=== PATIENT | female | born 1985 | race Two or more races ===

== ENCOUNTER → 2021-12-24 | Emergency (ER) | payer OTHER ==
[~2021-12-24] VITALS: Ht 154.9 cm; Wt 105.2 kg
== END | disposition home or self-care (01) ==
LOC: ER 09:04
DX: R42 Dizziness and giddiness (principal)

== ENCOUNTER 2024-03-14 10:45 | Emergency (ER) | payer OTHER ==
[~2024-03-14] VITALS: Ht 152.4 cm; Wt 102.5 kg
[2024-03-14] MEDS ORDERED: KETOROLAC TROMETHAMINE 30 MG VIAL IM ONE (11:15)
== END 2024-03-14 12:44 | disposition home or self-care (01) ==
LOC: ER 10:46
DX: M71.9 Bursopathy, unspecified (principal)

== ENCOUNTER 2024-08-25 07:58 | Emergency (ER) | payer OTHER ==
[~2024-08-25] VITALS: Ht 152.4 cm; Wt 105.7 kg
[2024-08-25] MEDS ORDERED: EPIDIOLEX100 MG/1 M PO (08:25)
[2024-08-25] MEDS ORDERED: KETOROLAC TROMETHAMINE 60 MG VIAL IM STA (09:17)
== END 2024-08-25 13:13 | disposition home or self-care (01) ==
LOC: ER 08:01
DX: G44.209 Tension-type headache, unspecified, not intractable (principal); Z20.822 Contact with and (suspected) exposure to COVID-19